=== PATIENT | female | born 1990 ===

== ENCOUNTER → 2018-06-26 | Emergency (ER) | payer OTHER ==
[~2018-06-26] VITALS: Ht 175.3 cm; Wt 142.0 kg
[~2018-06-26] MED LIST: CIPROFLOXACIN500 MG; METRONIDAZOLE500 MG; SYNTHROID50 MCG PO
== END | disposition left against medical advice (07) ==
LOC: ER 03:31
DX: Z53.20 Procedure and treatment not carried out because of patient's decision for unspecified reasons (principal)

== ENCOUNTER 2019-07-31 12:06 | Emergency (ER) | payer OTHER ==
[~2019-07-31] VITALS: Ht 175.3 cm; Wt 134.7 kg
[2019-07-31] MEDS ORDERED: TRI SPRINTEC PO (12:31)
== END 2019-07-31 18:54 | disposition home or self-care (01) ==
LOC: ER 12:06
DX: J32.0 Chronic maxillary sinusitis (principal)